=== PATIENT | male | born 1990 | race Caucasian/White ===

== ENCOUNTER 2020-01-08 22:40 | Emergency (ER) | payer BC, MEDICAID ==
[~2020-01-08] VITALS: Ht 177.8 cm; Wt 67.3 kg
--- NOTE | 2020-01-08 23:30 | NUR ---
MANAGER MACHINE: PT. TO ROOM FROM LOBBY AT THIS TIME.
[2020-01-09] MEDS ORDERED: KETOROLAC 30 MG/1 ML IM ONE
[2020-01-09] MEDS ORDERED: METHOCARBAMOL 750 MG TABLET PO ONE
[2020-01-09 01:04] VITALS: BP 118/76
== END 2020-01-09 01:06 | disposition home or self-care (01) ==
LOC: ED 23:44
DX: S20.219A Contusion of unspecified front wall of thorax, initial encounter (principal); S00.01XA Abrasion of scalp, initial encounter; S09.90XA Unspecified injury of head, initial encounter; Y04.8XXA Assault by other bodily force, initial encounter; Y93.89 Activity, other specified; Y92.89 Other specified places as the place of occurrence of the external cause; Y99.8 Other external cause status
CPT/HCPCS: 70450; 71046; 96372; 99284; J1885

== ENCOUNTER 2020-12-27 00:36 | Emergency (ER) | payer MEDICAID, OTHER ==
[~2020-12-27] VITALS: Ht 177.8 cm; Wt 71.5 kg
[2020-12-27 01:10] LABS: BASOPHILS % (AUTO) 1 % (0-1); EOSINOPHILS % (AUTO) 6 % (1-7); LYMPHOCYTES % (AUTO) 37 % (22-44); MEAN CORPUSCULAR HEMOGLOBIN 29.5 pg (27.5-34.5); MEAN CORPUSCULAR HGB CONC 33.8 g/dL (33.2-36.2); MEAN PLATELET VOLUME 8.6 fL (7.4-10.4); MONOCYTES % (AUTO) 8 % (2-9); NEUTROPHILS % (AUTO) 49 % (42-75); PLATELET COUNT 309 x10^3/uL (130-400); RED BLOOD COUNT 5.18 x10^6/uL (4.38-5.82)
[2020-12-27 01:18] LABS: ALANINE AMINOTRANSFERASE 51 U/L (12-78); ALBUMIN 3.7 g/dL (3.4-5.0); ANION GAP 2 mmol/L (5-15); CALCIUM 8.6 mg/dL (8.5-10.1); CHLORIDE 103 mmol/L (98-107); CREATININE 0.78 mg/dL (0.7-1.3)
[2020-12-27 01:19] LABS: SALICYLATE LEVEL < 1.7 mg/dL (2.8-20.0)
--- NOTE | 2020-12-27 01:19 | NUR ---
pt reports coming into ED today due to worsening depression feelings and recent SI. Pt is an IV drug user and states he has a plan to inject to overdose. pt has a hx of depression but denies history of SA. pt not currently on medications for SI. pt changed into gown, 06/14 belongings bags secured, room secured, sitter in line of sight. UDS sent to lab. pt nad, Patient is resting comfortably in bed. Bed in lowest, rails engaged, call light on lap. Vital Signs within normal limits. WCTM.
[2020-12-27 01:20] LABS: ALKALINE PHOSPHATASE 98 U/L (45-117); BILIRUBIN,TOTAL 0.5 mg/dL (0.2-1.0); TOTAL PROTEIN 7.9 g/dL (6.4-8.2)
[2020-12-27 02:03] LABS: AMPHETAMINE SCREEN, URINE Negative (Negative); BARBITURATE SCREEN, URINE Negative (Negative); BENZODIAZEPINE SCREEN, URINE Negative (Negative); CANNABINOID SCREEN, URINE Negative (Negative); COCAINE SCREEN, URINE Negative (Negative); METHADONE SCREEN, URINE Negative (Negative); OPIATE SCREEN, URINE Positive (Negative)
--- NOTE | 2020-12-27 02:05 | NUR ---
Patient is resting comfortably in bed. Bed in lowest, rails engaged, call light on lap. provided snacks for comfort. NAD, room secured, sitter in line of sight. WCTM.
--- NOTE | 2020-12-27 03:33 | NUR ---
Patient is resting comfortably in bed. Bed in lowest, rails engaged, call light on lap. waiting for telepsych. NAD, room secured, sitter in line of sight. WCTM.
--- NOTE | 2020-12-27 06:23 | NUR ---
pt resting on gurney. no changes in condition, nad, eyes closed, even and unlabored respirations. room secured, wctm. waiting for telepsych
--- NOTE | 2020-12-27 06:51 | NUR ---
report to Marietta GARRIDO, pt care transferred at this time.
--- NOTE | 2020-12-27 07:02 | NUR ---
ASSUMING CARE OF PT AFTER BEDSIDE REPORT FROM SANJAY. PT SPEAKING TO TELEPSYCH MD. ALVARES. SAFETY PRECAUTIONS IN PLACE.
[2020-12-27 07:16] VITALS: BP 118/72
--- NOTE | 2020-12-27 08:13 | NUR ---
PT ASLEEP WITH EVEN AND UNLABORED RESPRIATIONS. SAFETY PRECAUTIONS IN PLACE. NADN.
--- NOTE | 2020-12-27 09:10 | NUR ---
PT PROVIDED WITH BREAKFAST TRAPolo.
--- NOTE | 2020-12-27 09:16 | NUR ---
Antonino paz in ED - 12/27/20 at 0917 by DANNY PT BACK FROM IR. 10.1 L OFF. VSS. ALVARES
--- NOTE | 2020-12-27 11:32 | NUR ---
PT ASLEEP WITH EVEN AND UNLABORED RESPIRATIONS. SITTER AT BEDSIDE. SAFETY PRECAUTIONS IN PLACE. DARYLN.
--- NOTE | 2020-12-27 12:33 | NUR ---
PT PROVIDED WITH LUNCH TRAY. NADN. SITTER AT BEDSIDE. SAFETY PRECAUTIONS IN PLACE.
[2020-12-27] MEDS ORDERED: HYDROXYZINE PAMOATE 50MG CAP PO PRN (14:00)
== END 2020-12-29 08:34 | disposition admitted as inpatient to this hospital (09) ==
LOC: ED 05:16
DX: F41.1 Generalized anxiety disorder (principal); Z20.822 Contact with and (suspected) exposure to COVID-19; R45.851 Suicidal ideations; F32.9 Major depressive disorder, single episode, unspecified; J45.909 Unspecified asthma, uncomplicated; F17.290 Nicotine dependence, other tobacco product, uncomplicated
CPT/HCPCS: 36415; 80053; 80299; 80307; 80320; 80329; 85025; 87426; 99283; 99285; G0480

== ENCOUNTER 2020-12-27 13:45 | Inpatient (IN) | payer MEDICAID, OTHER ==
[~2020-12-27] VITALS: Ht 177.8 cm; Wt 70.1 kg
[2020-12-27] MEDS ORDERED: BISACODYL 10 MG SUPP PR PRN (14:00)
[2020-12-27] MEDS ORDERED: ONDANSETRON ODT 4 MG PO PRN (14:00)
[2020-12-27] MEDS ORDERED: POLYETHYLENE GLYCOL 17 GM PACKET PO PRN (14:00)
[2020-12-27] MEDS ORDERED: DOCUSATE 100 MG CAPSULE PO PRN (14:00)
[2020-12-27] MEDS ORDERED: BUPRENORPHINE/NALOXONE 2-0.5MG SL ONE ×2 (15:50→16:00)
[2020-12-27] MEDS ORDERED: PLEASE ENTER HEIGHT AND WEIGHT MC SCH (16:00)
[2020-12-27 17:00] VITALS: BP 119/79
[2020-12-27] MEDS ORDERED: NICOTINE 21 MG/24 HR PATCH.TD24 ONE (17:19)
[2020-12-27] MEDS: NICOTINE 21 MG/24 HR PATCH.TD24 TD SCH (17:21)
[2020-12-27 18:37] LABS: MICROSCOPIC NOT IND
[2020-12-27 18:50] VITALS: BP 100/67
[2020-12-28 06:57] LABS: BASOPHILS % (AUTO) 1 % (0-1); EOSINOPHILS % (AUTO) 6 % (1-7); LYMPHOCYTES % (AUTO) 44 % (22-44); MEAN CORPUSCULAR HGB CONC 33.4 g/dL (33.2-36.2); MEAN PLATELET VOLUME 8.9 fL (7.4-10.4); MONOCYTES % (AUTO) 8 % (2-9); NEUTROPHILS % (AUTO) 42 % (42-75); PLATELET COUNT 232 x10^3/uL (130-400); RED BLOOD COUNT 4.97 x10^6/uL (4.38-5.82)
[2020-12-28 07:24] LABS: CHOL/HDL RATIO 4.6; FREE T4 (FREE THYROXINE) 0.87 ng/dL (0.76-1.46)
[2020-12-28 07:25] VITALS: BP 90/54
[2020-12-28] MEDS ORDERED: TIOTROPIUM BROMIDE 18 MCG/INH INH SCH (09:00)
[2020-12-28] MEDS ORDERED: ALBUTEROL/IPRATROPIUM 2.5MG/0.5MG, 3 ML NPPB SCH (09:00)
[2020-12-28] MEDS ORDERED: ALBUTEROL/IPRATROPIUM 2.5MG/0.5MG, 3 ML NPPB PRN (09:30)
[2020-12-28] MEDS: BUPRENORPHINE/NALOXONE 2-0.5MG SL SCH ×2 (09:36→21:30)
[2020-12-28] MEDS: NICOTINE 21 MG/24 HR PATCH.TD24 TD SCH (09:36)
[2020-12-28] MEDS: PAROXETINE 10 MG TABLET PO SCH (15:52)
[2020-12-28 19:26] VITALS: BP 110/70
[2020-12-28] MEDS ORDERED: BUPRENORPHINE/NALOXONE 2-0.5MG SL SCH (21:00)
[2020-12-28] MEDS: TRAZODONE 50MG TABLET PO PRN (21:30)
[2020-12-29] MEDS: PAROXETINE 10 MG TABLET PO SCH (08:23)
[2020-12-29] MEDS: BUPRENORPHINE/NALOXONE 2-0.5MG SL SCH ×2 (08:23→20:35)
[2020-12-29] MEDS: NICOTINE 21 MG/24 HR PATCH.TD24 TD SCH (08:23)
[2020-12-29 09:03] VITALS: BP 101/62
[2020-12-29 19:27] VITALS: BP 110/70
[2020-12-29] MEDS: TRAZODONE 50MG TABLET PO PRN (20:35)
[2020-12-29] MEDS ORDERED: ALBUTEROL/IPRATROPIUM 2.5MG/0.5MG, 3 ML NPPB SCH (21:00)
[2020-12-30 07:42] VITALS: BP 85/48
[2020-12-30] MEDS ORDERED: TIOTROPIUM BROMIDE 18 MCG/INH INH SCH (09:00)
[2020-12-30] MEDS: NICOTINE 21 MG/24 HR PATCH.TD24 TD SCH (09:04)
[2020-12-30] MEDS: PAROXETINE 10 MG TABLET PO SCH (09:05)
[2020-12-30] MEDS: BUPRENORPHINE/NALOXONE 2-0.5MG SL SCH ×2 (09:05→19:51)
[2020-12-30] MEDS: HYDROXYZINE PAMOATE 50MG CAP PO PRN ×2 (09:10→15:08)
[2020-12-30 18:21] VITALS: BP 94/61
[2020-12-30] MEDS ORDERED: COVID-19 VAC,AD26(JANSSEN)/PF 0.5ML IM-VACC ONE ×2 (18:30)
[2020-12-30] MEDS: TRAZODONE 50MG TABLET PO PRN (19:51)
[2020-12-31 07:48] VITALS: BP 99/65
[2020-12-31] MEDS: BUPRENORPHINE/NALOXONE 2-0.5MG SL SCH ×2 (08:54→20:35)
[2020-12-31] MEDS: PAROXETINE 10 MG TABLET PO SCH (08:54)
[2020-12-31] MEDS: NICOTINE 21 MG/24 HR PATCH.TD24 TD SCH (08:54)
[2020-12-31] MEDS: ACETAMINOPHEN 325 MG TABLET PO PRN ×2 (08:55→16:56)
[2020-12-31] MEDS: HYDROXYZINE PAMOATE 50MG CAP PO PRN (16:57)
[2020-12-31] MEDS: TRAZODONE 50MG TABLET PO PRN (20:35)
[2020-12-31 23:01] VITALS: BP 100/60
[2021-01-01 07:31] VITALS: BP 98/64
[2021-01-01] MEDS: PAROXETINE 10 MG TABLET PO SCH (08:53)
[2021-01-01] MEDS: BUPRENORPHINE/NALOXONE 2-0.5MG SL SCH ×2 (08:53→20:01)
[2021-01-01] MEDS: NICOTINE 21 MG/24 HR PATCH.TD24 TD SCH (08:55)
[2021-01-01 19:56] VITALS: BP 94/61
[2021-01-01] MEDS: TRAZODONE 50MG TABLET PO PRN (20:01)
[2021-01-02 07:15] VITALS: BP 94/63
[2021-01-02] MEDS: PAROXETINE 10 MG TABLET PO SCH (09:02)
[2021-01-02] MEDS: BUPRENORPHINE/NALOXONE 2-0.5MG SL SCH (09:02)
[2021-01-02] MEDS: NICOTINE 21 MG/24 HR PATCH.TD24 TD SCH (09:02)
[2021-01-02] MEDS: HYDROXYZINE PAMOATE 50MG CAP PO PRN ×2 (09:15→16:40)
[2021-01-02 18:37] VITALS: BP 91/53
[2021-01-02] MEDS: TRAZODONE 50MG TABLET PO PRN (20:47)
[2021-01-02] MEDS ORDERED: BUPRENORPHINE/NALOXONE 2-0.5MG SL SCH (21:00)
[2021-01-03 07:36] VITALS: BP 110/73
[2021-01-03] MEDS: NICOTINE 21 MG/24 HR PATCH.TD24 TD SCH (09:53)
[2021-01-03] MEDS: PAROXETINE 10 MG TABLET PO SCH (09:53)
[2021-01-03] MEDS: HYDROXYZINE PAMOATE 50MG CAP PO PRN (11:32)
[2021-01-03] MEDS ORDERED: NICO-587 TD (12:22)
[2021-01-03] MEDS ORDERED: HYDR50CA2 PO (12:22)
[2021-01-03] MEDS ORDERED: PARO10TA3 PO (12:22)
[2021-01-03] MEDS ORDERED: TRAZ50TA66 PO (12:22)
== END 2021-01-03 13:50 | disposition home or self-care (01) | DRG 885 ==
LOC: 3E 15:22
PROVIDERS: ADMIT Psychiatry & Neurology Psychosomatic Medicine; ATTEND Psychiatry & Neurology Psychosomatic Medicine
DX: F33.2 Major depressive disorder, recurrent severe without psychotic features (principal); F11.20 Opioid dependence, uncomplicated; F15.20 Other stimulant dependence, uncomplicated; R45.851 Suicidal ideations; F17.210 Nicotine dependence, cigarettes, uncomplicated; F40.10 Social phobia, unspecified; J45.909 Unspecified asthma, uncomplicated; F90.9 Attention-deficit hyperactivity disorder, unspecified type; Z20.822 Contact with and (suspected) exposure to COVID-19; Z59.0 Homelessness; Z79.899 Other long term (current) drug therapy; Z81.8 Family history of other mental and behavioral disorders; Z85.820 Personal history of malignant melanoma of skin
CPT/HCPCS: 36415; 87806; J0572; 71045; 80061; 81003; 84439; 84443; 85025; 86592; 91303; 93005; 93306; G0475

== ENCOUNTER 2021-01-10 15:18 | Emergency (ER) | payer MEDICAID ==
[~2021-01-10] VITALS: Ht 177.8 cm; Wt 73.0 kg
[~2021-01-10 15:18] MED LIST: HYDR50CA2 PO; NICO-587 TD; PARO10TA3 PO; TRAZ50TA66 PO
[2021-01-10 15:27] VITALS: BP 110/62
--- NOTE | 2021-01-10 15:41 | NUR ---
BIB [facility] FROM HOME. PT C/O EPIGASTRIC PAIN RADIATING TO LEFT NECK STARTED AT 1430. PT AMBULATED FROM AMBULANCE TO ED ROOM WITH STEADY GAIT. EKG COMPLETED. PT CONNECTED TO MONITORING. CALL LIGHT IN REACH. AWAITING ORDERS.
--- NOTE | 2021-01-10 16:27 | NUR ---
ALL RESULTS ARE BACK AT THIS TIME. CHART UP FOR RECHECK.
--- NOTE | 2021-01-10 16:29 | NUR ---
ERMD AT BEDSIDE TO UPDATE PT ON POC
--- NOTE | 2021-01-10 16:39 | NUR ---
PT AWARE TO USE MTM FOR [facility].
== END 2021-01-10 16:47 | disposition home or self-care (01) ==
LOC: ED 16:41
DX: R07.89 Other chest pain (principal)
CPT/HCPCS: 71045; 93005; 99283

== ENCOUNTER 2021-02-26 18:32 | Emergency (ER) | payer MEDICAID ==
[~2021-02-26] VITALS: Ht 177.8 cm; Wt 72.0 kg
[2021-02-26 19:04] LABS: BASOPHILS % (AUTO) 1 % (0-1); EOSINOPHILS % (AUTO) 6 % (1-7); LYMPHOCYTES % (AUTO) 29 % (22-44); MEAN CORPUSCULAR HEMOGLOBIN 28.9 pg (27.5-34.5); MEAN CORPUSCULAR HGB CONC 34.1 g/dL (33.2-36.2); MEAN PLATELET VOLUME 8.6 fL (7.4-10.4); MONOCYTES % (AUTO) 9 % (2-9); NEUTROPHILS % (AUTO) 56 % (42-75); PLATELET COUNT 310 x10^3/uL (130-400); RED BLOOD COUNT 4.93 x10^6/uL (4.38-5.82); RED CELL DISTRIBUTION WIDTH 12.7 % (9.4-14.8)
--- NOTE | 2021-02-26 19:04 | NUR ---
RECEIVED REPORT FROM HEMA DAVIS. PT RESTING ON [facility]. GIORGIO. SITTER AT BEDSIDE. ROOM SECURED.
[2021-02-26 19:14] LABS: ALBUMIN 3.3 g/dL (3.4-5.0); ANION GAP 1 mmol/L (5-15); CHLORIDE 104 mmol/L (98-107)
[2021-02-26 19:15] LABS: SALICYLATE LEVEL < 1.7 mg/dL (2.8-20.0)
[2021-02-26 19:17] LABS: ALANINE AMINOTRANSFERASE 44 U/L (12-78); ALKALINE PHOSPHATASE 105 U/L (45-117); BILIRUBIN,TOTAL 0.5 mg/dL (0.2-1.0); CREATININE 0.68 mg/dL (0.7-1.3); TOTAL PROTEIN 7.3 g/dL (6.4-8.2)
--- NOTE | 2021-02-26 19:31 | NUR ---
PT TO ROOM 1 W/ C/O SI W/ PLAN TO OD ON HEROIN. PT STATES A FEW MONTHS AGO PT ATTEMPTED SA W/ HEROIN OD. PT STATES HE WOULD LIKE TO BE HELPED AND WANTS TO BE ADMITTED TO THE PSYCH UNIT FOR ASSISTANCE. PT CALM AND COOPERATIVE. PT RESTING ON GURNEY. NADN. SITTER REMAINS AT BEDSIDE. ROOM REMAINS SECURE.
[2021-02-26 19:36] LABS: AMPHETAMINE SCREEN, URINE Positive (Negative); BARBITURATE SCREEN, URINE Negative (Negative); BENZODIAZEPINE SCREEN, URINE Negative (Negative); CANNABINOID SCREEN, URINE Negative (Negative); COCAINE SCREEN, URINE Negative (Negative); METHADONE SCREEN, URINE Negative (Negative); OPIATE SCREEN, URINE Positive (Negative)
--- NOTE | 2021-02-26 20:38 | NUR ---
PT RESTING ON [facility]. GIORGIO. SITTER REMAINS AT BEDSIDE. ROOM REMAINS SECURE.
--- NOTE | 2021-02-26 20:58 | NUR ---
REPORT GIVEN TO HEMA DOLAN.
--- NOTE | 2021-02-26 22:50 | NUR ---
Pt sleeping on gurney at this time. Room secured, sitter at doorway.
--- NOTE | 2021-02-26 22:51 | NUR ---
JOSE LUIS RN: [facility] UNABLE TO TAKE PT. UNTIL 5AM. WILL FAX OUT.
--- NOTE | 2021-02-27 00:18 | NUR ---
JOSE LUIS RN: PACKET FAXED TO [facility], [facility], AND [facility]; [facility] CONFIRMATION FAX BACK.
--- NOTE | 2021-02-27 00:43 | NUR ---
TP RN: CONFIRMATION FAX RECEIVED.
--- NOTE | 2021-02-27 00:46 | NUR ---
Pt cont to sleep on gurney, lights and tv on. Room secured and sitter at doorway for observation.
--- NOTE | 2021-02-27 01:25 | NUR ---
Antonino paz in [facility] - 02/27/21 at 0252 by BGLAESS UPDATED INSURANCE INFORMATION RE-FAXED TO [facility].
--- NOTE | 2021-02-27 01:26 | NUR ---
UPDATED INSURANCE INFORMATION RE-FAXED TO [facility], [facility], [facility], [facility].
[2021-02-27 01:49] VITALS: BP 110/64
--- NOTE | 2021-02-27 01:50 | NUR ---
PT AWAKE, REQUESTING LIGHTS BE TURNED OFF. LIGHTS TURNED OFF AND ROOM SECURED AGAIN.
--- NOTE | 2021-02-27 02:36 | NUR ---
TP: KAYA AT [facility] CALLED TO SAY THEY CAN NOT ACCEPT HIM AT THIS TIME DUE TO A CONFLICT OF INTREST. THEY WILL KEEP IT OPEN AND REVIEW IT FURTHER
--- NOTE | 2021-02-27 03:15 | NUR ---
[facility] CAN TAKE PATEINT @ 0800 IF [facility] DOSEN'T END UP TAKING THE PATIENT AT 0500.
--- NOTE | 2021-02-27 04:30 | NUR ---
PT SLEEPING ON GURNEY, NO ACUTE DISTRESS NOTED. ROOM SECURED AND SITTER AT DOORWAY FOR OBSERVATION.
--- NOTE | 2021-02-27 04:58 | NUR ---
BEDSIDE REPORT RECEIVED FROM KELSI GARRIDO
--- NOTE | 2021-02-27 05:05 | NUR ---
PT SUPINE ON [facility]IO JUARE[facility], VSS. RESTING COMFORTABLY WITH EYES CLOSED. PT DENIES ANY NEEDS AT THIS TIME. SAFETY LAL DOWN, SITTER IN VIEW.
--- NOTE | 2021-02-27 06:52 | NUR ---
BEDSIDE REPORT CHRIS GARRIDO
[2021-02-27] MEDS ORDERED: ESCI20TA8 PO (09:33)
[2021-02-27] MEDS ORDERED: ALBU18HF PO (09:33)
== END 2021-02-26 22:00 ==
LOC: ED 21:09
DX: R45.851 Suicidal ideations (principal); F32.9 Major depressive disorder, single episode, unspecified
CPT/HCPCS: 36415; 80053; 80299; 80307; 80320; 80329; 85025; 87426; 99285; G0480

== ENCOUNTER 2021-02-27 06:38 | Inpatient (IN) | payer MEDICAID ==
[~2021-02-27] VITALS: Ht 177.8 cm; Wt 71.6 kg
[2021-02-27] MEDS ORDERED: BISACODYL 10 MG SUPP PR PRN (07:30)
[2021-02-27] MEDS ORDERED: DOCUSATE 100 MG CAPSULE PO PRN (07:30)
[2021-02-27] MEDS ORDERED: ACETAMINOPHEN 325 MG TABLET PO PRN (07:30)
[2021-02-27] MEDS ORDERED: POLYETHYLENE GLYCOL 17 GM PACKET PO PRN (07:30)
[2021-02-27] MEDS ORDERED: ONDANSETRON ODT 4 MG PO PRN (07:30)
[2021-02-27 08:00] VITALS: BP 114/69
[2021-02-27] MEDS ORDERED: BUPRENORPHINE/NALOXONE 2-0.5MG SL SCH ×2 (09:00→21:00)
[2021-02-27] MEDS ORDERED: PLEASE ENTER HEIGHT AND WEIGHT MC SCH (09:00)
[2021-02-27] MEDS ORDERED: ALBU18HF PO (09:33)
[2021-02-27] MEDS ORDERED: ESCI20TA8 PO (09:33)
[2021-02-27 09:40] VITALS: BP 114/69
[2021-02-27 18:35] VITALS: BP 103/50
[2021-02-27 21:11] LABS: MICROSCOPIC NOT IND
[2021-02-28 07:44] VITALS: BP 114/68
[2021-02-28] MEDS: ESCITALOPRAM 10MG TABLET PO SCH (08:29)
[2021-02-28] MEDS: BUPRENORPHINE/NALOXONE 2-0.5MG SL SCH ×2 (08:29→21:06)
[2021-02-28] MEDS: NICOTINE 21 MG/24 HR PATCH.TD24 TD SCH (08:30)
[2021-02-28] MEDS ORDERED: BUPRENORPHINE/NALOXONE 2-0.5MG SL SCH (09:00)
[2021-02-28 19:56] VITALS: BP 105/70
[2021-02-28] MEDS: TRAZODONE 50MG TABLET PO PRN (21:14)
[2021-03-01 07:40] VITALS: BP 95/59
[2021-03-01] MEDS: ESCITALOPRAM 10MG TABLET PO SCH (08:57)
[2021-03-01] MEDS: NICOTINE 21 MG/24 HR PATCH.TD24 TD SCH (08:57)
[2021-03-01] MEDS: BUPRENORPHINE/NALOXONE 2-0.5MG SL SCH ×2 (08:58→20:15)
[2021-03-01 20:09] VITALS: BP 107/61
[2021-03-01] MEDS: TRAZODONE 50MG TABLET PO PRN (20:15)
[2021-03-02 06:34] VITALS: BP 116/74
[2021-03-02] MEDS: NICOTINE 21 MG/24 HR PATCH.TD24 TD SCH (08:07)
[2021-03-02] MEDS: ESCITALOPRAM 10MG TABLET PO SCH (08:07)
[2021-03-02] MEDS: BUPRENORPHINE/NALOXONE 2-0.5MG SL SCH (08:07)
[2021-03-02 19:46] VITALS: BP 130/80
[2021-03-02] MEDS: HYDROXYZINE PAMOATE 50MG CAP PO PRN (20:12)
[2021-03-02] MEDS: TRAZODONE 50MG TABLET PO PRN (20:12)
[2021-03-03 07:45] VITALS: BP 91/63
[2021-03-03] MEDS: ESCITALOPRAM 10MG TABLET PO SCH (08:57)
[2021-03-03] MEDS: NICOTINE 21 MG/24 HR PATCH.TD24 TD SCH (08:58)
[2021-03-03] MEDS: BUPRENORPHINE/NALOXONE 2-0.5MG SL SCH (08:58)
[2021-03-03] MEDS ORDERED: HYDR50CA2 PO (16:28)
[2021-03-03] MEDS ORDERED: ESCI10TA97 PO (16:28)
[2021-03-03] MEDS ORDERED: TRAZ50TA66 PO (16:28)
[2021-03-03 19:07] VITALS: BP 93/55
[2021-03-03] MEDS: HYDROXYZINE PAMOATE 50MG CAP PO PRN (20:27)
[2021-03-03] MEDS: TRAZODONE 50MG TABLET PO PRN (20:27)
[2021-03-03 20:29] VITALS: BP 110/58
[2021-03-04 07:04] VITALS: BP 102/61
[2021-03-04] MEDS: ESCITALOPRAM 10MG TABLET PO SCH (08:48)
[2021-03-04] MEDS: NICOTINE 21 MG/24 HR PATCH.TD24 TD SCH (08:48)
[2021-03-04] MEDS: BUPRENORPHINE/NALOXONE 2-0.5MG SL SCH (08:48)
[2021-03-04] MEDS: HYDROXYZINE PAMOATE 50MG CAP PO PRN ×3 (11:42→20:04)
[2021-03-04 19:38] VITALS: BP 108/57
[2021-03-04] MEDS: TRAZODONE 50MG TABLET PO PRN ×2 (20:03→20:04)
[2021-03-05 08:01] VITALS: BP 107/70
[2021-03-05] MEDS: BUPRENORPHINE/NALOXONE 2-0.5MG SL SCH (08:16)
[2021-03-05] MEDS: ESCITALOPRAM 10MG TABLET PO SCH (08:16)
[2021-03-05] MEDS: NICOTINE 21 MG/24 HR PATCH.TD24 TD SCH (08:17)
== END 2021-03-05 10:10 | disposition home or self-care (01) | DRG 885 ==
LOC: 3E 08:43
PROVIDERS: ADMIT Psychiatry & Neurology Psychosomatic Medicine; ATTEND Psychiatry & Neurology Psychosomatic Medicine
DX: F33.2 Major depressive disorder, recurrent severe without psychotic features (principal); F11.20 Opioid dependence, uncomplicated; F15.20 Other stimulant dependence, uncomplicated; F17.200 Nicotine dependence, unspecified, uncomplicated; F41.9 Anxiety disorder, unspecified; G47.00 Insomnia, unspecified; J45.909 Unspecified asthma, uncomplicated; Z79.899 Other long term (current) drug therapy
CPT/HCPCS: J0572 ×7; 81003; 93005